=== PATIENT | female | born 1940 | race Caucasian/White ===

== ENCOUNTER → 2021-03-27 | Outpatient (CLI) | payer MEDICARE, OTHER ==
[~2021-03-27] MED LIST: ALTACE 10MG TAB10 MG PO; APRESOLINE 25MG25 MG PO; CARVEDILOL25 MG PO; CLEOCIN HC150 MG/CAP PO; GINKGO BILOBA60 M3 PO; HCTZ 25MG25 MG PO; ISOSORBIDE30 MG PO; K-TAB20 MEQ PO; LEADER CRANBERR1 TAB PO; LEVOFLOXACIN500 M1 PO; LIPITOR 10MG10 MG PO; LYSINE 500500 MG/TAB PO; NABUMETONE500 MG PO; OCUVITE ADULT 51 SGL PO; TOPCARE ASPIRIN81 M1 PO; ULTRAM50 M1 PO; ZOVIRAX400 M1 PO
== END ==
LOC: AMSURD 13:26
DX: I48.0 Paroxysmal atrial fibrillation (principal)

== ENCOUNTER 2021-10-22 17:01 | Emergency (ER) | payer MEDICARE, OTHER ==
[~2021-10-22] VITALS: Wt 83.2 kg
[2021-10-22] MEDS ORDERED: FOLTANX PO (17:09)
[2021-10-22] MEDS ORDERED: FUSION PLUS CA1 EACH PO (17:09)
[2021-10-22] MEDS ORDERED: NEURONTIN100 M1 PO (17:10)
[2021-10-22] MEDS ORDERED: ISOSORBIDE MONO60 M2 PO (17:11)
[2021-10-22] MEDS ORDERED: FUROSEMIDE40 MG ×2 (17:12→17:13)
[2021-10-22] MEDS ORDERED: XARELTO20 MG PO ×2 (17:12→17:15)
[2021-10-22] MEDS ORDERED: OLMESARTAN MEDO40 MG PO (17:12)
[2021-10-22] MEDS ORDERED: VITAMIN D325 MC2 (17:13)
[2021-10-22] MEDS ORDERED: RENAL VITAMIN0.8 MG PO (17:14)
[2021-10-22] MEDS ORDERED: PREDNISONE20 M1 PO (17:29)
[2021-10-22] MEDS ORDERED: MORGIDOX 1X100100 MG PO (17:29)
[2021-10-22 17:38] VITALS: BP 139/78
== END 2021-10-22 17:46 | disposition home or self-care (01) ==
LOC: ED 17:01
DX: J44.1 Chronic obstructive pulmonary disease with (acute) exacerbation (principal); Z99.81 Dependence on supplemental oxygen; Z87.891 Personal history of nicotine dependence; Z88.1 Allergy status to other antibiotic agents; Z88.2 Allergy status to sulfonamides

== ENCOUNTER → 2023-10-01 | Outpatient (CLI) | payer MEDICARE, OTHER ==
[~2023-10-01] MED LIST changes: +FOLTANX PO; +FUROSEMIDE40 MG; +FUSION PLUS CA1 EACH PO; +ISOSORBIDE MONO60 M2 PO; +MORGIDOX 1X100100 MG PO; +NEURONTIN100 M1 PO; +OLMESARTAN MEDO40 MG PO; +PREDNISONE20 M1 PO; +RENAL VITAMIN0.8 MG PO; +VITAMIN D325 MC2; +XARELTO20 MG PO
== END ==
LOC: RAD 09:47 → MAMMO 10:00
DX: M81.0 Age-related osteoporosis without current pathological fracture (principal)